=== PATIENT | male | born 1995 | race Caucasian/White ===

== ENCOUNTER 2020-12-15 11:48 | Emergency (ER) | payer SELFPAY ==
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
--- NOTE | 2020-12-15 13:37 | CR ---
Indication: Fell, swollen and painful knee Comparison: None available. Technique: Standing AP, lateral, and sunrise views right knee were obtained Findings: There is no displaced fracture or dislocation. The joint spaces are grossly preserved. There is demonstration of a large suprapatellar joint effusion. Impression: Demonstration of a large suprapatellar joint effusion without evidence of acute osseous abnormality. Consider follow-up with MRI of the knee on an outpatient basis to assess for internal derangement. Dictated by Partha Leo MD @ 12/15/2020 1:35:[address] Partha Leo @ Dec 15 2020 1:35PM
== END 2020-12-15 13:15 | disposition home or self-care (01) ==
LOC: MW.ED 11:48
DX: S89.91XA Unspecified injury of right lower leg, initial encounter (principal); W19.XXXA Unspecified fall, initial encounter
CPT/HCPCS: 73562-26-RT; 73562-RT; 99283; 99283-25